=== PATIENT | female | born 1970 ===

== ENCOUNTER 2024-03-31 11:15 | Outpatient (AMB) | payer MEDICARE, MEDICAID, SELFPAY ==
--- NOTE | 2024-03-31 11:21 | HO.NEPHOV_ITS ---
Vital Signs 03/31/24 11:24 Height 5 ft 4 in Weight 108 lb BMI 18.5 BP 106/80 Blood Pressure Location Rt brachial Position Sitting Intake Visit Reasons: DX- Hyponatremia/ Hyperkalemia Forge Helper Required: No Accompanied by: Other Relationship Allergies baclofen Allergy (Verified 03/30/24 15:49) Hives green smalls Allergy (Verified 03/31/24 11:27) Unknown tizanidine [From Zanaflex] Allergy (Verified 03/30/24 15:49) Hives HPI Comments Details: I had the pleasure of seeing Becky in consultation for hyponatremia and hyperkalemia. She has cerebral palsy and needs 24 hour care. She was accompanied by her RN and HOISTING PILE DRIVING ENGINEER. Patient is nonverbal and is unable to provide any history. Details are taken from the medical records, accompanying care team and from her primary care physician. Recently during an incidental blood work she was found to have hyperkalemia and was kept in [facility] for a few days. She did not have any nausea, vomiting or diarrhea. She has normal renal functions. Lately her blood pressure has been running low normal. She has been on amlodipine. She is on valproic acid. She has been prescribed Lokelma the dose of which has been adjusted recently after persistent hyperkalemia. She is not known to have any hypoglycemia. She had some urology medication changes recently and the timing of electrolyte abnormality was coinciding. She is on citalopram but is not known to have any cardiac issues. [facility] Medical History (Updated 03/31/24 @ 12:07 by Ángel Anderson MD) Transaminitis Seizure disorder Scoliosis Osteoporosis Cognitive impairment Hypertension Hiatal hernia G tube feedings Dyspepsia Dysmenorrhea Contracture of joint Constipation Cerebral palsy Bruxism Bipolar disorder Surgical History H/O esophagogastroduodenoscopy Social History (Updated 03/31/24 @ 11:31 by Clare Rangel MA) Alcohol intake: never Patient Tobacco Use Status: Never used Tobacco Review of Systems Const Unobtainable due to mental condition Physical Exam Vital Signs: Last Vital Signs BP 106/80 03/31/24 11:24 BMI result Body Mass Index 18.5 Const General: no acute distress Resp Auscultation: diminished lung sounds GI Auscultation: normal bowel sounds Extrem General: Yes no pedal edema Results Reviewed Nephrology Results: No Data to Display Assessment & Plan Assessment & Plan (1) Hyperkalemia: Code(s): E87.5 - Hyperkalemia Category: Medical (2) Hyponatremia: Code(s): E87.1 - Hypo-osmolality and hyponatremia Category: Medical Plan Becky has hyponatremia and hyperkalemia without any hypotension even though her blood pressure has been running low end of normal. I have ordered cortisol and thyroid function. I discontinued her amlodipine and started her on Florinef 0.1 mg daily. I asked the care team to continue Lokelma for now which could be weaned off once her serum potassium and sodium has normalized. She is not on any diuretics. She has no history of heart failure. Her renal functions are normal. She is on citalopram which can also cause hyponatremia. She was clinically euvolemic to may be mildly hypovolemic. If her serum sodium persists to be on the lower side we may have to hold citalopram and cut back water flushes. All these have been explained to the care team as well as primary care physician. Time spent retrieving all her data from [facility], recent hospitalization, patient encounter, discussion of her case with care team as well as PCP involved more than 60 minutes. Further management is pending evolving data. Follow-up given. Orders: Orders Cortisol Random Today E87.1 - Hypo-osmolality and hyponatremia, E87.5 - Hyperkalemia TSH reflex Free T4 Today E87.1 - Hypo-osmolality and hyponatremia, E87.5 - Hyperkalemia Electrolytes Today E87.1 - Hypo-osmolality and hyponatremia, E87.5 - Hyperkalemia Medications: New fludrocortisone 0.1 mg PO DAILY 90 tabs 4RF Coding Level of Care Code New Pt Level 5 (27776) Diagnoses Hyperkalemia E87.5 Hyponatremia E87.1
[2024-03-31 11:24] VITALS: BP 106/80; BMI 18.5
== END 2024-03-31 12:10 | disposition home or self-care (01) ==
PROVIDERS: PCP Internal Medicine; Visit Provider Internal Medicine Nephrology
DX: E87.5 Hyperkalemia (principal); E87.1 Hypo-osmolality and hyponatremia
CPT/HCPCS: 99205

== ENCOUNTER → 2024-03-31 11:15 | Outpatient (BNVA) | payer MEDICARE, MEDICAID, SELFPAY | PROVIDERS: PCP Internal Medicine; Visit Provider Internal Medicine Nephrology | DX: E87.5 Hyperkalemia (principal); E87.1 Hypo-osmolality and hyponatremia | CPT/HCPCS: 99202 ==

== ENCOUNTER 2024-04-26 09:49 | Outpatient (AMB) | payer MEDICARE, MEDICAID, SELFPAY ==
--- NOTE | 2024-04-26 10:07 | HO.NEPHOV ---
Vital Signs 04/26/24 10:08 Height 5 ft 4 in Weight 108 lb BMI 18.5 Intake Visit Reasons: 1 mon follow up- LVM Accompanied by: Other Relationship Allergies baclofen Allergy (Verified 04/26/24 10:08) Hives green smalls Allergy (Verified 04/26/24 10:08) Unknown tizanidine [From Zanaflex] Allergy (Verified 04/26/24 10:08) Hives HPI Comments Details: I had the pleasure of seeing Becky in follow up for hyponatremia and hyperkalemia. She has cerebral palsy and needs 24 hour care. She was accompanied by her RN and PLATE WORKER. Patient is nonverbal and is unable to provide any history. Details are taken from the medical records, accompanying care team and from her primary care physician. Recently during an incidental blood work she was found to have hyperkalemia and was kept in [facility] for a few days. She did not have any nausea, vomiting or diarrhea. She has normal renal functions. She is on valproic acid. She is not known to have any hypoglycemia.She was started on Florinef at the last visit and her Na and K have normalized. [facility] Medical History (Updated 03/31/24 @ 12:07 by Ángel Anderson MD) Transaminitis Seizure disorder Scoliosis Osteoporosis Cognitive impairment Hypertension Hiatal hernia G tube feedings Dyspepsia Dysmenorrhea Contracture of joint Constipation Cerebral palsy Bruxism Bipolar disorder Surgical History H/O esophagogastroduodenoscopy Social History Alcohol intake: never Patient Tobacco Use Status: Never used Tobacco Review of Systems Const Unobtainable due to mental condition Physical Exam Vital Signs: BMI result Body Mass Index 18.5 Const General: cooperative Eyes EOM: EOMs intact bilaterally Resp Auscultation: diminished lung sounds Cardio Rate: regular rate GI Other: G tube Extrem General: Yes no pedal edema Results Reviewed Nephrology Results: No Data to Display Assessment & Plan Assessment & Plan (1) Hyponatremia: Code(s): E87.1 - Hypo-osmolality and hyponatremia Category: Medical (2) Hyperkalemia: Code(s): E87.5 - Hyperkalemia Category: Medical Plan Becky has hyponatremia and hyperkalemia without any hypotension even though her blood pressure has been running low end of normal. Her cortisol is normal. She is off amlodipine. She can continue on Florinef 0.1 mg daily. I D/Bakari her Lokelky. She is not on any diuretics. She has no history of heart failure. Her renal functions are normal. She was clinically euvolemic. All these have been explained to the care team. I did not make any medication changes today. Further management is pending evolving data. Follow-up given Orders: Orders Blood Urea Nitrogen Today E87.1 - Hypo-osmolality and hyponatremia, E87.5 - Hyperkalemia Electrolytes 6 Months E87.1 - Hypo-osmolality and hyponatremia, E87.5 - Hyperkalemia Creatinine Today E87.1 - Hypo-osmolality and hyponatremia, E87.5 - Hyperkalemia Electrolytes Today E87.1 - Hypo-osmolality and hyponatremia, E87.5 - Hyperkalemia Blood Urea Nitrogen 6 Months E87.1 - Hypo-osmolality and hyponatremia, E87.5 - Hyperkalemia Creatinine 6 Months E87.1 - Hypo-osmolality and hyponatremia, E87.5 - Hyperkalemia Coding Level of Care Code Est Pt Level 4 (43469) Diagnoses Hyponatremia E87.1 Hyperkalemia E87.5
[2024-04-26 10:08] VITALS: BMI 18.5
== END 2024-04-26 10:44 | disposition home or self-care (01) ==
PROVIDERS: PCP Internal Medicine; Visit Provider Internal Medicine Nephrology
DX: E87.1 Hypo-osmolality and hyponatremia (principal); E87.5 Hyperkalemia
CPT/HCPCS: 99214

== ENCOUNTER → 2024-04-26 09:49 | Outpatient (BNVA) | payer MEDICARE, MEDICAID, SELFPAY | PROVIDERS: PCP Internal Medicine; Visit Provider Internal Medicine Nephrology | DX: E87.1 Hypo-osmolality and hyponatremia (principal); E87.5 Hyperkalemia | CPT/HCPCS: 99212 ==

== ENCOUNTER 2024-10-25 10:44 | Outpatient (AMB) | payer MEDICARE, MEDICAID, SELFPAY ==
--- NOTE | 2024-10-25 11:00 | HO.NEPHOV ---
Vital Signs 10/25/24 11:05 Height 5 ft 4 in Weight 108 lb BMI 18.5 Intake Visit Reasons: 6 mon follow up-Conf Metal Fabricating Supervisor Required: No Welder Gas Tungsten Arc: Welder Gas Tungsten Arc Present Accompanied by: Other Relationship Allergies baclofen Allergy (Verified 10/25/24 11:05) Hives green smalls Allergy (Verified 10/25/24 11:05) Unknown tizanidine [From Zanaflex] Allergy (Verified 10/25/24 11:05) Hives HPI Comments Details: Becky was seen in follow up for H/O hyponatremia and hyperkalemia. She has cerebral palsy and needs 24 hour care. Patient is nonverbal and is unable to provide any history. Details are taken from the medical records, accompanying care team and from her primary care physician. Recently during an incidental blood work she was found to have hyperkalemia and was kept in [facility] for a few days. She did not have any nausea, vomiting or diarrhea. She has normal renal functions. She is on valproic acid. She is not known to have any hypoglycemia.She was started on Florinef at the one of the previous visit and her Na and K have normalized. [facility] Medical History (Updated 03/31/24 @ 12:07 by Ángel Anderson MD) Transaminitis Seizure disorder Scoliosis Osteoporosis Cognitive impairment Hypertension Hiatal hernia G tube feedings Dyspepsia Dysmenorrhea Contracture of joint Constipation Cerebral palsy Bruxism Bipolar disorder Surgical History H/O esophagogastroduodenoscopy Social History Alcohol intake: never Patient Tobacco Use Status: Never used Tobacco Review of Systems Const All systems reviewed & are unremarkable except as noted in HPI and below Physical Exam Vital Signs: BMI result Body Mass Index 18.5 Const General: no acute distress Neck Neck: Yes supple Resp Auscultation: diminished lung sounds Cardio Rate: regular rate GI Palpation (GI): Soft to palpation Skin General skin exam: no rashes or lesions noted Results Reviewed Nephrology Results: No Data to Display Assessment & Plan Assessment & Plan (1) Hyponatremia: Code(s): E87.1 - Hypo-osmolality and hyponatremia Category: Medical (2) Hyperkalemia: Code(s): E87.5 - Hyperkalemia Category: Medical Plan Becky has H/O hyponatremia and hyperkalemia without any hypotension . Her cortisol is normal. She is off amlodipine. She can continue on Florinef 0.1 mg daily. She is not on Lokelma now. She is not on any diuretics. She has no history of heart failure. Her renal functions are normal. She was clinically euvolemic. All these have been explained to the care team. I did not make any medication changes today. Further management is pending evolving data. Orders: Orders Creatinine 1 Year E87.1 - Hypo-osmolality and hyponatremia, E87.5 - Hyperkalemia Blood Urea Nitrogen 1 Year E87.1 - Hypo-osmolality and hyponatremia, E87.5 - Hyperkalemia Electrolytes 1 Year E87.1 - Hypo-osmolality and hyponatremia, E87.5 - Hyperkalemia Coding Level of Care Code Est Pt Level 4 (87006) Diagnoses Hyponatremia E87.1 Hyperkalemia E87.5
[2024-10-25 11:05] VITALS: BMI 18.5
--- OUTSIDE RECORDS SUMMARY | 2024-10-25 13:07 | XMS_ITS | Clinical Summary ---
Author Organization [facility], Address [address] [place] [address] [place] [address] Phone Care Team Providers Care Provider Network Manager Name Role Phone Meghan Yoon MD Primary Care Provider Social History Tobacco Use Types Packs/Day Years Used Date Smoking Tobacco: Never Assessed Comments Unknown Sex and Gender Information Value Date Recorded Sex Assigned at Not on file Legal Sex Female 10:57 AM EDT Gender Identity Not on file Sexual Orientation Not on file Plan of Treatment Health Maintenance Due Date Last Done Comments Breast Cancer Screening 1970 Hepatitis B Vaccine (1 of 3 - 19+ 3-dose series) 12/29/1990 Colorectal Cancer Screening: Annual FOBT 12/29/2020 Colorectal Cancer Screening: Colonoscopy 12/29/2020 Colorectal Cancer Screening: Sigmoidoscopy 12/29/2020 Influenza Vaccine (#1) 2024 Pneumococcal Vaccine: Pediat rics (0 to 5 Years) and At-Risk Patients (6 to 64 Years) Aged Out No longer eligible b ased on patient's age to complete this topic Insurance MEDICARE MEDICAID [place] Care Teams Provider Network Manager Relationship Specialty Start Date End Date Meghan Yoon MD [address] [place] [address] [address] [place] [address] PCP - General Internal Medicine 03/22/24
--- OUTSIDE RECORDS SUMMARY | 2024-10-25 13:07 | XMS_ITS | Encounter Summary ---
Author Organization [facility], Address [address] [place] [address] Phone Care Team Providers Care Heater Installer Name Role Phone Meghan Yoon MD Primary Care Provider Encounter Details Date Type Department Care Team (Late st Contact Info) Description 03/22/2024 Documentation Only [facility], [address] [place] [id number] [place] [place], [place] [address] [place] [phone] Social History Tobacco Use Types Packs/Day Years Used Date Smoking Tobacco: Never Assessed Comments Unknown Sex and Gender Information Value Date Recorded Sex Assigned at Not on file Legal Sex Female 10:57 AM EDT Gender Identity Not on file Sexual Orientation Not on file documented as of this encounter Plan of Treatment Not on file documented as of this encounter Visit Diagnoses Not on filedocumented in this encounter Care Teams Heater Installer Relationship Specialty Start Date End Date Meghan Yoon MD [address] [place] [address] [address] [place] [address] PCP - General Internal Medicine 03/22/24 documented as of this encounter
== END 2024-10-25 11:21 | disposition home or self-care (01) ==
PROVIDERS: PCP Internal Medicine; Visit Provider Internal Medicine Nephrology
DX: E87.1 Hypo-osmolality and hyponatremia (principal); E87.5 Hyperkalemia
CPT/HCPCS: 99214

== ENCOUNTER → 2024-10-25 10:44 | Outpatient (BNVA) | payer MEDICARE, MEDICAID, SELFPAY | PROVIDERS: PCP Internal Medicine; Visit Provider Internal Medicine Nephrology | DX: E87.1 Hypo-osmolality and hyponatremia (principal); E87.5 Hyperkalemia | CPT/HCPCS: 99212 ==